=== PATIENT | female | born 1975 | race Caucasian/White ===

== ENCOUNTER 2024-02-23 11:39 | Emergency (ER) | payer MEDICAID ==
[~2024-02-23] VITALS: Ht 152.4 cm; Wt 109.0 kg
[2024-02-23 12:00] VITALS: BP 161/88; PULSE 90; RESP 16; TEMP 98.8; O2SAT 98
[2024-02-23] MEDS ORDERED: AMOX-494 MT (12:44)
[2024-02-23] MEDS ORDERED: ERYT1OIN6 RIGHTEYE (12:44)
== END 2024-02-23 13:24 | disposition home or self-care (01) ==
LOC: ER 11:39
DX: H66.92 Otitis media, unspecified, left ear (principal); H10.89 Other conjunctivitis
CPT/HCPCS: 99283